=== PATIENT | female | born 1980 | race Caucasian/White ===

== ENCOUNTER 2020-08-14 07:07 | Emergency (ER) | payer MEDICAID, SELFPAY ==
--- NOTE | 2020-08-14 07:06 | ECG_ITS ---
APPROVED REPORT Exam: Resting ECG HR:235 bpm ECG Measurements Heart Rate 235 AXES MI P 223 QRSd 192 QRS 78 QT 188 T 0 QTc 371 Conclusion Atrial flutter Nonspecific intraventricular block Abnormal ECG Electronically signed by : Vicente Bell, 08/15/2020 13:49:36
[2020-08-14 07:08] VITALS: BP 118/81; PULSE 237; RESP 23; TEMP 36.6; O2SAT 99
[2020-08-14 07:15] VITALS: PULSE 235; RESP 20; O2SAT 96
[2020-08-14 07:20] VITALS: BP 120/89; PULSE 96; RESP 15; O2SAT 95
--- NOTE | 2020-08-14 07:22 | ECG_ITS ---
APPROVED REPORT Exam: Resting ECG HR:85 bpm ECG Measurements Heart Rate 85 AXES UT 138 P 73 QRSd 76 QRS 76 QT 366 T 66 QTc 435 Conclusion Sinus rhythm with sinus arrhythmia with occasional and consecutive premature ventricular complexes Abnormal ECG Electronically signed by : Vicente Bell, 08/15/2020 13:49:26
--- NOTE | 2020-08-14 07:24 | XR_ITS ---
PROCEDURE INFORMATION: Exam: XR Chest Exam date and time: 08/14/2020 7:24 AM Age: 40 years old Clinical indication: Patient HX: Heart palpitations started around 2 am. Smoker TECHNIQUE: Imaging protocol: XR of the chest. Views: 2 views. COMPARISON: CR XR CHEST PORTABLE 03/09/2019 12:48 AM FINDINGS: Lungs: Unremarkable. No consolidation. Pleural spaces: Unremarkable. No pleural effusion. No pneumothorax. Heart/Mediastinum: Unremarkable. No cardiomegaly. Bones/joints: Unremarkable. IMPRESSION: No acute findings.
[2020-08-14 07:29] VITALS: BP 118/83; PULSE 98; RESP 14; O2SAT 99
--- NOTE | 2020-08-14 07:33 | HMH.EDARPALP ---
ED Disposition Clinical Impression: Supraventricular tachycardia Disposition: Home, Self-Care Condition on Discharge: Good Instructions: Paroxysmal Supraventricular Tachycardia Additional Instructions: resume meds and see card for follow up Referrals: Provider,MD Enoc [Primary Care Provider] - Oc Villagran MD [Staff Physician] - - Critical Care Critical Care Time: No Attestation: On 08/14/20, the high probability of a clinically significant, sudden or life threatening deterioration of the following system(s) required my full and direct attention, intervention and personal management. The time I documented below is in addition to time spent performing reported procedures but includes the following listed in this critical care notation. Medical Decision Making - Medical Records Medical records reviewed: Yes: I reviewed the patient's medical records. - Baron Inquiry Pt receiving controlled substance: No Vital Signs: 08/14/20 07:08 08/14/20 07:15 08/14/20 07:20 Temperature 97.9 F Temperature Source Oral Pulse Rate 235 H 96 H Pulse Rate [Right] 237 H Respiratory Rate 23 20 15 Blood Pressure 120/89 Blood Pressure [Right Arm] 118/81 Blood Pressure Mean [Right Arm] 93 Blood Pressure Source [Right Arm] Automatic Cuff 02 Sat by Pulse Oximetry 99 96 95 Oxygen Delivery Method Room Air 08/14/20 07:29 08/14/20 08:00 Temperature Temperature Source Pulse Rate 98 H 73 Pulse Rate [Right] Respiratory Rate 14 13 Blood Pressure 118/83 110/83 Blood Pressure [Right Arm] Blood Pressure Mean [Right Arm] Blood Pressure Source [Right Arm] 02 Sat by Pulse Oximetry 99 96 Oxygen Delivery Method - Lab Data Lab results reviewed: Yes: I reviewed the patient's lab results. Lab Results 08/14/20 07:20: WBC 11.8 H, RBC 5.19, Hgb 16.5 H, Hct 49.4 H, MCV 95.1, MCH 31.8 H, MCHC 33.5, RDW 15.0, Plt Count 296, MPV 8.2, Neut % (Auto) 72.4, Lymph % (Auto) 18.4, [place] % (Auto) 4.6, Eos % (Auto) 3.4, Baso % (Auto) 1.1, Neut # (Auto) 8.6 H, Lymph # (Auto) 2.2, [place] # (Auto) 0.6, Eos # (Auto) 0.4, Baso # (Auto) 0.1 08/14/20 07:20: Sodium 145, Potassium 4.1, Chloride 113 H, Carbon Dioxide 20 L, Anion Gap 16.1 H, BUN 7, Creatinine 0.50 L, Estimated Creat Clear 191, Estimated GFR 138, Est GFR ( Amer) 167, Glucose 116 H, Calcium 8.9, Troponin I 0.01 Result diagrams: 08/14/20 07:20 08/14/20 07:20 Orders (Tests/Meds): ED MEDICATIONS Generic Name Dose Route Start Last Admin Trade Name Freq PRN Reason Stop Dose Admin Sodium Chloride 1,000 mls @ 999 mls/hr 08/14/20 07:45 08/14/20 07:34 Sod Chlor 0.9% 1000ml Bag IV 08/14/20 08:45 999 mls/hr .Q1H1M ABDULAZIZ Administration Discontinued Medications Generic Name Dose Route Start Last Admin Trade Name Freq PRN Reason Stop Dose Admin Adenosine 6 mg 08/14/20 07:30 08/14/20 07:34 Adenosine 6mg/2ml Vial IV 08/14/20 07:31 6 mg ONCE ONE Administration ORDERS Category Date Time Status Chest XR 2 view (NOT portable) [XR chest 2V] Stat Exams 08/14/20 07:24 Taken Troponin I Q3H Lab 08/14/20 10:30 Ordered Troponin I Q3H Lab 08/14/20 13:30 Ordered - Radiology Data #1 Image(s): Chest Image Reviewed: Yes I reviewed the patient's radiology image Preliminary Findings: Normal/NAD - ECG Data Tracing #1 Arrhythmias present: PSVT Ischemic changes: non-specific ST-T wave changes Tracing #2 Normal Sinus Rhythm: Yes Ischemic changes: non-specific ST-T wave changes - TONNY Score for Non-Stemi Age of Patient: 30-39 years old Heart Rate: 200 bpm or higher Systolic Blood Pressure: 100-119 mmHg Serum Creatinine: 0.40-0.79 mg/dl CHF [place] Class: I-No CHF Other Risk Factors: None Non-Stemi Risk Score: 101 Medical Decision Narrative: had episode of svt and on meds and has pending appt with card and has meds Arrhythmia/Palpitations HPI - General Chief Complaint: Arrhythmia/Palpitations Sta
[2020-08-14 07:34] LABS: Basophils # 0.1 K/mm3 (0-0.2); Basophils % 1.1 % (0.1-2.0); Eosinophils # 0.4 K/mm3 (0.0-0.4); Eosinophils % 3.4 % (0.1-12.0); Hematocrit 49.4 % (37.0-47.0); Hemoglobin 16.5 g/dL (12.2-16.2); Lymphocytes # 2.2 K/mm3 (0.7-4.5); Lymphocytes % 18.4 % (10-50); Mean Corpuscular HGB Conc 33.5 g/dL (31.8-35.4); Mean Corpuscular Hemoglobin 31.8 pg (27.0-31.2); Mean Corpuscular Volume 95.1 fl (81-99); Mean Platelet Volume 8.2 fl (7.4-10.4); Monocytes # 0.6 K/mm3 (0.1-1.0); Monocytes % 4.6 % (1.7-9.3); Neutrophils # 8.6 K/mm3 (1.8-7.8); Neutrophils % 72.4 % (37.0-80.0); Platelet Count 296 K/mm3 (142-424); Red Blood Count 5.19 M/mm3 (4.20-5.40); White Blood Count 11.8 K/mm3 (4.8-10.8)
[2020-08-14 07:39] LABS: Anion Gap 16.1 mEq/L (5-15); Blood Urea Nitrogen 7 mg/dl (7-17); Calcium 8.9 mg/dl (8.4-10.2); Carbon Dioxide 20 mmol/L (22.0-30.0); Chloride 113 mmol/L (98-107); Creatinine Clearance Estimated 191 mL/min (50-200); Estimated Glomerular Filt Rate 138 ml/min (>60); GFR (African American) 167 ML/MIN (>60); Glucose 116 mg/dl (74-100); Potassium 4.1 mmoL/L (3.5-5.1); Sodium 145 mmol/L (136-145)
[2020-08-14 07:52] LABS: Troponin I 0.01 ng/ml (0.00-0.034)
[2020-08-14 08:00] VITALS: BP 110/83; PULSE 73; RESP 13; O2SAT 96
[2020-08-14 08:41] VITALS: BP 118/86; PULSE 83; RESP 18; TEMP 36.7; O2SAT 97
== END 2020-08-14 08:45 | disposition home or self-care (01) ==
PROVIDERS: Emergency Provider Emergency Medicine
DX: I47.1 Supraventricular tachycardia (principal); F17.210 Nicotine dependence, cigarettes, uncomplicated
CPT/HCPCS: 71046; 80048; 84484; 85025; 93005; 96365; 96375; 99211; 99291

== ENCOUNTER → 2020-11-05 15:08 | Outpatient (CLI) | payer MEDICAID, SELFPAY | PROVIDERS: Visit Provider Internal Medicine Cardiovascular Disease | DX: R00.2 Palpitations (principal); I47.1 Supraventricular tachycardia; I48.92 Unspecified atrial flutter; I49.9 Cardiac arrhythmia, unspecified | CPT/HCPCS: 93225 ==

== ENCOUNTER → 2020-11-10 14:24 | Outpatient (CLI) | payer MEDICAID, SELFPAY ==
--- NOTE | 2020-11-10 14:28 | CA_ITS ---
APPROVED REPORT EXAM: Comprehensive 2D, Doppler, and color-flow Echocardiogram Automobile Locator: Viviane Colón, RT(R) Ht: 5 ft 4 in Wt: 190lbs BSA: 1.91 BP: 152/99 mmHg Indications: Murmur, smoker, palpitations, HTN, family history of HD, hx of atrial fib/flutter per patient. 2D Dimensions LVOT 2.12 cm (M/F) 1.5-2.5 LVEF (Vora's) 59.60 % LV Volume 94.20 mL LA Volume 23.80 mL LA Volume Index 12.50 mL/m2 (M/F) 16-34 M-Mode Dimensions RVDd 3.03 cm (0.9-2.6) LA Diam 3.13 cm (1.9-4.0) LVDd 3.98 cm (3.5-5.7) Ao Diam 2.86 cm (2.0-3.7) LVDs 2.88 cm (3.5-5.7) IVSd 0.80 cm (0.6-1.1) PWd 0.72 cm (0.6-1.1) EF (Teich) 54.20% FS 27.60% EDV (Teich) 69.20 mL ESV (Teich) 31.70 mL LV Diastology E Decel Time 187.00 (160-240 msec) E/A Ratio 1.47 MED E' 11.30 (< 7 cm/sec) E'/MED E' Ratio 8.59 (>14) LAT E' 14.50 (<10 cm/sec) E/LAT E' Ratio 6.70 (>14) Mitral Valve MV E Max Deyvi. 97.00 (40-130 cm/s) MV A Velocity 66.00 (40-130 cm/s) E/A Ratio 1.47 MV Decel. Time 187.00 (160-240 ms) MV PHT 55.00 ms Left Ventricle Left atrium normal size, left ventricle is normal size, there is no concentric left ventricular hypertrophy, visually estimated ejection fraction 55% with no regional wall motion abnormality. Diastolic parameters are within normal range. Right Ventricle Right atrium and right ventricle are normal size and contractility. Aortic Valve Aortic valve is grossly normal, there is no aortic stenosis or aortic insufficiency. Mitral Valve Mitral valve grossly normal, there is trace mitral regurgitation. Tricuspid Valve Tricuspid valve is grossly normal, there is trace tricuspid regurgitation, tricuspid regurgitation jet velocity is inadequate for calculation of the right ventricular systolic pressure. Pulmonic Valve Pulmonic valve is poorly visualized. Great Vessels Aortic root is normal size. Inferior vena cava is normal size with normal inspiratory collapse. Pericardium No significant pericardial effusion noted. Conclusion 1. Normal left ventricular size, visually estimated ejection fraction 55% with no regional wall motion abnormality, diastolic parameters are within normal range. 2. Trace mitral and tricuspid regurgitation 3. No significant pericardial effusion noted. 4. Inferior vena cava is normal size with normal inspiratory collapse. Electronically signed by : Matthew Gilliam MD 11/11/2020 14:38:31
== END ==
PROVIDERS: Visit Provider Internal Medicine Cardiovascular Disease
DX: I49.9 Cardiac arrhythmia, unspecified (principal); I47.1 Supraventricular tachycardia; I48.92 Unspecified atrial flutter
CPT/HCPCS: 93306

== ENCOUNTER 2021-06-12 01:43 | Emergency (ER) | payer MEDICAID, SELFPAY ==
[2021-06-12] VITALS (10 sets, daily range): BP systolic 137–158; BP diastolic 74–103; PULSE 50–80; RESP 11–18; TEMP 36.7–36.8; O2SAT 96–99; BMI 30.9
--- NOTE | 2021-06-12 01:58 | XR_ITS ---
PROCEDURE INFORMATION: Exam: XR Chest Exam date and time: 06/12/2021 2:59 AM Age: 40 years old Clinical indication: Sternal or substernal pain; Additional info: Chest pain TECHNIQUE: Imaging protocol: XR of the chest. Views: 2 views. COMPARISON: CR XR CHEST 2V 08/14/2020 7:27 AM FINDINGS: Lungs: Unremarkable. No consolidation. Pleural spaces: Unremarkable. No pleural effusion. No pneumothorax. Heart/Mediastinum: Unremarkable. No cardiomegaly. Bones/joints: Unremarkable. IMPRESSION: No acute findings.
--- NOTE | 2021-06-12 01:58 | ECG_ITS ---
APPROVED REPORT Exam: Resting ECG HR:63 bpm ECG Measurements Heart Rate 63 AXES WI 128 P 61 QRSd 105 QRS 74 QT 436 T 59 QTc 444 Conclusion SINUS RHYTHM NORMAL ECG UNCONFIRMED REPORT Electronically signed by : Vicente Bell MD 06/12/2021 08:20:06
--- NOTE | 2021-06-12 02:14 | PC.NURSE ---
PT REPORTS THAT PAIN IS INTERMITT AND IS NOT PRESENT AT THIS TIME. FAMILY REMAINS AT BEDSIDE. WCM.
[2021-06-12 02:16] LABS: Basophils # 0.2 K/mm3 (0-0.2); Basophils % 3.3 % (0.1-2.0); Eosinophils # 0.2 K/mm3 (0.0-0.4); Eosinophils % 3.1 % (0.1-12.0); Hematocrit 44.4 % (37.0-47.0); Hemoglobin 14.8 g/dL (12.2-16.2); Lymphocytes # 2.2 K/mm3 (0.7-4.5); Lymphocytes % 30.8 % (10-50); Mean Corpuscular HGB Conc 33.4 g/dL (31.8-35.4); Mean Corpuscular Hemoglobin 32.9 pg (27.0-31.2); Mean Corpuscular Volume 98.7 fl (81-99); Mean Platelet Volume 8.2 fl (7.4-10.4); Monocytes # 0.4 K/mm3 (0.1-1.0); Monocytes % 5.5 % (1.7-9.3); Neutrophils # 4.1 K/mm3 (1.8-7.8); Neutrophils % 57.2 % (37.0-80.0); Platelet Count 275 K/mm3 (142-424); Red Blood Count 4.49 M/mm3 (4.20-5.40); White Blood Count 7.1 K/mm3 (4.8-10.8)
[2021-06-12 02:25] LABS: Alanine Aminotransferase 24 U/L (12-78); Alkaline Phosphatase 86 U/L (38-126); Aspartate Amino Transferase 29 U/L (14-36); Bilirubin,Direct 0.1 mg/dl (0.0-0.4); Bilirubin,Indirect 0.4 mg/dL (0.0-0.9); Bilirubin,Total 0.5 mg/dl (0.2-1.3); Bilirubin,Unconjugated 0.4 mg/dL (0.0-1.1); Blood Urea Nitrogen 5 mg/dl (7-17); Calcium 8.6 mg/dl (8.4-10.2); Carbon Dioxide 23 mmol/L (22.0-30.0); Chloride 107 mmol/L (98-107); Creatinine Clearance Estimated 164 mL/min (50-200); Estimated Glomerular Filt Rate 112 ml/min (>60); GFR (African American) 135 ML/MIN (>60); Glucose 102 mg/dl (74-100); HCG Qualitative, Serum Negative (Negative); Sodium 138 mmol/L (136-145); Total Protein,Serum 7.4 g/dl (6.3-8.2)
--- NOTE | 2021-06-12 02:27 | PC.NURSE ---
MADE AWARE OF ABNORMAL LABS
--- NOTE | 2021-06-12 02:28 | CT_ITS ---
PROCEDURE INFORMATION: Exam: CTA Chest With Contrast Exam date and time: 06/12/2021 3:10 AM Age: 40 years old Clinical indication: Sternal or substernal pain; Patient HX: PT states she fell skating yesterday but tonight she is having chest pain; Additional info: Cp TECHNIQUE: Imaging protocol: Computed tomographic angiography of the chest with contrast. 3D rendering (Not supervised by radiologist): MIP and/or 3D reconstructed images were created by the technologist. Radiation optimization: All CT scans at this facility use at least one of these dose optimization techniques: automated exposure control; mA and/or kV adjustment per patient size (includes targeted exams where dose is matched to clinical indication); or iterative reconstruction. Contrast material: ISOVUE 370; Contrast volume: 70 ml; Contrast route: INTRAVENOUS (IV); COMPARISON: CR XR CHEST 2V 06/12/2021 2:59 AM FINDINGS: Pulmonary arteries: Normal. No pulmonary emboli. Aorta: Unremarkable. No aortic aneurysm. No aortic dissection. Lungs: There is an 8 mm calcified granuloma right lower lobe. Otherwise lungs are clear. No focal consolidation. Pleural spaces: Unremarkable. No pneumothorax. No pleural effusion. Heart: Unremarkable. No cardiomegaly. No pericardial effusion. Lymph nodes: There are calcified right hilar and subcarinal lymph nodes. Bones/joints: Unremarkable. No acute fracture. Soft tissues: Unremarkable. IMPRESSION: 1. No evidence of pulmonary embolism. 2. No acute intrathoracic abnormality. 3. Evidence of old granulomatous disease.
--- NOTE | 2021-06-12 02:31 | HMH.EDCP ---
ED Disposition Clinical Impression: Chest pain Qualifiers: Chest pain type: precordial pain Qualified Code(s): R07.2 - Precordial pain Disposition: Home, Self-Care Condition on Discharge: Good Instructions: DI for Atypical Chest Pain Additional Instructions: see pcp for follow up Referrals: Provider,Referral, [Primary Care Provider] - - Critical Care Critical Care Time: No Attestation: On , the high probability of a clinically significant, sudden or life threatening deterioration of the following system(s) required my full and direct attention, intervention and personal management. The time I documented below is in addition to time spent performing reported procedures but includes the following listed in this critical care notation. Medical Decision Making - Medical Records Medical records reviewed: Yes: I reviewed the patient's medical records. - Baron Inquiry Pt receiving controlled substance: No Vital Signs: 06/12/21 01:44 Temperature 98.1 F Temperature Source Oral Pulse Rate [Left Radial] 80 Respiratory Rate 16 Blood Pressure [Right Arm] 143/103 H Blood Pressure Mean [Right Arm] 116 Blood Pressure Source [Right Arm] Automatic Cuff Blood Pressure Position [Right Arm] Sitting 02 Sat by Pulse Oximetry 99 Oxygen Delivery Method Room Air - Lab Data Lab results reviewed: Yes: I reviewed the patient's lab results. Lab Results 06/12/21 02:05: Serum HCG, Qual Negative 06/12/21 02:05: WBC 7.1, RBC 4.49, Hgb 14.8, Hct 44.4, MCV 98.7, MCH 32.9 H, MCHC 33.4, RDW 15.0, Plt Count 275, MPV 8.2, Neut % (Auto) 57.2, Lymph % (Auto) 30.8, [place] % (Auto) 5.5, Eos % (Auto) 3.1, Baso % (Auto) 3.3 H, Neut # (Auto) 4.1, Lymph # (Auto) 2.2, [place] # (Auto) 0.4, Eos # (Auto) 0.2, Baso # (Auto) 0.2 06/12/21 02:05: Sodium 138, Potassium 3.0 L, Chloride 107, Carbon Dioxide 23, Anion Gap 11.0, BUN 5 L, Creatinine 0.60, Estimated Creat Clear 164, Estimated GFR 112, Est GFR ( Amer) 135, Glucose 102 H, Calcium 8.6, Total Bilirubin 0.5, Direct Bilirubin 0.1, Conjugated Bilirubin 0.0, Indirect Bilirubin 0.4, Unconjugated Bilirubin 0.4, AST 29, ALT 24, Alkaline Phosphatase 86, Troponin I < 0.01, Total Protein 7.4, Albumin 4.0 06/12/21 04:39: Troponin I < 0.01 Result diagrams: 06/12/21 02:05 06/12/21 02:05 Orders (Tests/Meds): ED MEDICATIONS Generic Name Dose Route Start Last Admin Trade Name Freq PRN Reason Stop Dose Admin Sodium Chloride 1,000 mls @ 999 mls/hr 06/12/21 02:00 06/12/21 02:08 Sod Chlor 0.9% 1000ml Bag IV 06/12/21 03:00 999 mls/hr .Q1H1M ABDULAZIZ Administration Discontinued Medications Generic Name Dose Route Start Last Admin Trade Name Freq PRN Reason Stop Dose Admin Aspirin 324 mg 06/12/21 02:00 06/12/21 02:08 Aspirin 81mg Chewable Tablet PO 06/12/21 02:01 324 mg ONCE ONE Administration Nitroglycerin 0.4 mg 06/12/21 02:00 06/12/21 02:08 Nitroglycerin 0.4mg Sl Tablet SL 06/12/21 02:01 1 tab ONCE ONE Administration Potassium Chloride 20 meq 06/12/21 02:34 06/12/21 02:36 Potassium Chloride 20meq Tab PO 06/12/21 02:35 20 meq ONCE ONE Administration ORDERS Category Date Time Status Troponin I Q3H Lab 06/12/21 08:00 Ordered - Radiology Data #1 Image(s): Chest Image Reviewed: Yes I have reviewed radiologist's interpretation Preliminary Findings: Normal/NAD - CT Data CT Scan: Chest Time Received: 05:[address] Reviewed: Yes: I have viewed the radiologist's interpretation Preliminary Findings: Normal/NAD - ECG Data Tracing #1 Normal Sinus Rhythm: Yes Ischemic changes: non-specific ST-T wave changes Medical Decision Narrative: nonspecific chest pain Chest Pain HPI - General Chief Complaint: Chest Pain Stated Complaint: Pain under left breast Time Seen by Provider: 06/12/21 02:31 Mode of Arrival: Ambulatory Source of Information: Patient, Spouse, Medical Record Limitations: No Limitations Description of Symptoms (Re
[2021-06-12 02:45] LABS: Troponin I < 0.01 ng/ml (0.00-0.034)
[2021-06-12 05:17] LABS: Troponin I < 0.01 ng/ml (0.00-0.034)
--- NOTE | 2021-06-12 05:25 | PC.NURSE ---
PT REPORTS NO FURTHER PAIN. PT/FAMILY UPDATED WITH EXPECTED WAIT TIMES. FAMILY REMAINS AT BEDSIDE. WCM.
== END 2021-06-12 05:53 | disposition home or self-care (01) ==
PROVIDERS: Emergency Provider Emergency Medicine
DX: R07.2 Precordial pain (principal); R00.2 Palpitations; R01.1 Cardiac murmur, unspecified; I48.91 Unspecified atrial fibrillation; F17.210 Nicotine dependence, cigarettes, uncomplicated; Z82.49 Family history of ischemic heart disease and other diseases of the circulatory system
CPT/HCPCS: 71046; 71275; 80048; 80076; 84484; 84703; 85025; 93005; 96360; 99285

== ENCOUNTER 2023-10-17 09:53 | Outpatient (CLI) | payer MEDICAID, SELFPAY ==
[2023-10-17 10:40] LABS: Basophils # 0.1 K/mm3 (0-0.2); Basophils % 1.4 % (0.1-2.0); Eosinophils # 0.4 K/mm3 (0.0-0.4); Eosinophils % 6.3 % (0.1-12.0); Hematocrit 46.7 % (37.0-47.0); Hemoglobin 14.8 g/dL (12.2-16.2); Lymphocytes # 1.6 K/mm3 (0.7-4.5); Lymphocytes % 26.4 % (10-50); Mean Corpuscular HGB Conc 31.8 g/dL (31.8-35.4); Mean Corpuscular Hemoglobin 32.2 pg (27.0-31.2); Mean Corpuscular Volume 101.3 fl (81-99); Mean Platelet Volume 8.8 fl (7.4-10.4); Monocytes # 0.3 K/mm3 (0.1-1.0); Monocytes % 4.2 % (1.7-9.3); Neutrophils # 3.8 K/mm3 (1.8-7.8); Neutrophils % 61.8 % (37.0-80.0); Platelet Count 279 K/mm3 (142-424); Red Blood Count 4.61 M/mm3 (4.20-5.40); Red Cell Distribution Width 14.3 % (11.5-17.5); White Blood Count 6.1 K/mm3 (4.8-10.8)
[2023-10-17 11:06] LABS: Alanine Aminotransferase 21 U/L (12-78); Albumin Level 3.9 g/dl (3.5-5.0); Alkaline Phosphatase 58 U/L (38-126); Aspartate Amino Transferase 27 U/L (14-36); Bilirubin,Direct 0.3 mg/dl (0.0-0.4); Bilirubin,Indirect 0.3 mg/dL (0.0-0.9); Bilirubin,Total 0.6 mg/dl (0.2-1.3); Bilirubin,Unconjugated 0.3 mg/dL (0.0-1.1); Blood Urea Nitrogen 9 mg/dl (7-17); Calcium 9.1 mg/dl (8.4-10.2); Carbon Dioxide 25 mmol/L (22.0-30.0); Chloride 108 mmol/L (98-107); Chol/HDL Ratio 3.8 (1-3.5); Cholesterol 228 mg/dl (140-200); Estimated Glomerular Filt Rate 110 ml/min (>60); GFR (African American) 133 ML/MIN (>60); Glucose 101 mg/dl (74-100); HDL Cholesterol 60 mg/dl (40-60); Sodium 137 mmol/L (136-145); Total Protein,Serum 7.5 g/dl (6.3-8.2); Triglycerides 131 mg/dl (30-150); VLDL Cholesterol 26 mg/dL (0-40)
[2023-10-17 11:20] LABS: Free T4 (Free Thyroxine) 0.99 ng/dl (0.78-2.19)
== END 2023-10-17 23:59 | disposition home or self-care (01) ==
LOC: LAB 09:54
PROVIDERS: Visit Provider Nurse Practitioner Family
DX: I48.92 Unspecified atrial flutter (principal); E87.6 Hypokalemia; R07.2 Precordial pain
CPT/HCPCS: 36415; 80048; 80061; 80076; 84439; 84443; 85025

== ENCOUNTER 2024-02-20 12:37 | Emergency (ER) | payer MEDICAID, SELFPAY ==
[2024-02-20] VITALS (7 sets, daily range): BP systolic 111–135; BP diastolic 74–87; PULSE 57–80; RESP 16–19; TEMP 36.9; O2SAT 97–100; BMI 30.9
--- NOTE | 2024-02-20 12:53 | ED_ITS ---
Discharge Plan Disposition Patient Disposition: Home, Self-Care Condition: Good Prescriptions Prescriptions: New methocarbamol 750 mg tablet 750 mg PO Q6H PRN (Reason: muscle spasm) Qty: 20 0RF lidocaine 5 % adhesive patch,medicated 1 patch topical DAILY Qty: 30 0RF Rx Instructions: leave on most painful area for up to 12 hrs No Action bisoprolol fumarate 5 mg tablet See Rx Instructions .ROUTE .COMPLEX Qty: 180 1RF Dose Instruction: TAKE 1 TABLET BY MOUTH TWICE DAILY Rx Instructions: TAKE 1 TABLET BY MOUTH TWICE DAILY Referrals Follow up/Referrals: Oc Rubio DO [Staff Physician] - See instructions Provider,Referral, [Primary Care Provider] - See instructions Activity Restrictions/Add. Instructions Additional Instructions/Restrictions: Check the patient portal for the results of your mini respiratory panel as they are not back yet. As I said we have essentially ruled out any serious or life- threatening condition today however there is possibility that this could be early shingles type pain. Follow-up with your PCP if you have no improvement worsening signs or symptoms or additional symptoms or return to the ER as needed Clinical Impressions Clinical Impression: Acute right flank pain Instructions Patient Instructions: DI for Acute Abdominal Pain Print Language Print Language: French Discharge ED Provider: Bird Pedraza General Adult HPI <LUCIE Montero - Last Filed: 02/20/24 17:26> General Chief complaint: Abdominal Pain Stated complaint: abd/back pain, no accident Time Seen by Provider: 02/20/24 12:53 History of Present Illness HPI narrative: Patient presents for evaluation of right sided flank/thoracic pain. Patient denies any trauma and began having right posterior flank pain that begins in the CVA area on the right and radiates around the right chest wall. She denies any fall trauma shortness of breath fever chills hemoptysis hematochezia melena recent recurrent illness. Patient reports that she did have chickenpox as a child. Related Data Previous Rx's ?Medication ?Instructions ?Recorded bisoprolol fumarate 5 mg tablet See Rx Instructions .Route 10/18/23 .COMPLEX #180 tabs lidocaine 5 % topical patch 1 patch topical DAILY #30 ea 02/20/24 methocarbamol 750 mg tablet 750 mg PO Q6H PRN muscle spasm #20 02/20/24 tabs Allergies Allergy/AdvReac Type Severity Reaction Status Date / Time No Known Allergies Allergy Verified 10/17/23 09:17 [facility] <LUCIE Montero - Last Filed: 02/20/24 17:26> [facility] Disclaimer: The information contained in this section may have been updated after the patient was seen, as this information can be updated by other users. Medical History Palpitations Surgical History Hx of cholecystectomy Social History Smoking Status: Current every day smoker alcohol intake: current alcohol intake frequency: 3 or more drinks per day substance use type: marijuana current occupational status: employed Travel in the last 8 weeks: None Have you lived/traveled outside US in past 30 days?: No Contact w/someone who lives/traveled outside US past 30 days?: No Exposure to someone with infectious disease in past 14 days?: No Do you have a fever (greater than 100.4 F or 38 C)?: No Have you tested positive for COVID-19: No Exposed to someone with COVID-19 in past 14 days?: No Do you have a sore throat?: No Do you have a cough?: No Do you have any weakness?: No Do you have any diarrhea?: No Are you experiencing any unusual bleeding?: No Do you have any muscle aches/pain?: No Do you have any abdominal pain?: Yes Are you experiencing loss of taste or smell?: No Other Medical History Have you received the Flu Vaccine for this season: No Have you received the Pneumonia Vaccine: No <LUCIE Montero - Last Filed: 02/20/24 17:26> ROS Obtained: Yes Systems reviewed as appropriate & no additional complaints except as documented Physical Exam <LUCIE Montero - Last Filed: 02/20/24 17:26> General General appearance: alert and in no apparent distress Respiratory Respiratory exam: Present normal lung sounds bilaterally Cardiovascular Cardiovascular exam: Present regular rate Neurological Exam Neurological exam: Present alert and oriented X3 Medical Decision Making <LUCIE Montero - Last Filed: 02/20/24 17:26> Medical Records Medical records reviewed: Yes I reviewed the patient's medical records. Screening: Per USPSTF and CDC recommendations, given the prevalence of disease in our region, it is our hospital?s policy to screen for HIV and viral Hepatitis for all patients aged 18 and over and those with ongoing risk factors. Baron Inquiry Pt receiving controlled substance: No Vital Signs: 02/20/24 12:38 02/20/24 12:59 02/20/24 13:00 Temperature 98.4 F Temperature Source Oral Pulse Rate 65 63 Pulse Rate [Left Radial] 63 Respiratory Rate 19 Blood Pressure 128/87 135/87 Blood Pressure [Right Arm] 128/87 Blood Pressure Mean [Right Arm] 100 02 Sat by Pulse Oximetry 100 100 100 Oxygen Delivery Method Room Air Room Air Room Air 02/20/24 13:15 02/20/24 14:00 02/20/24 14:30 Temperature Temperature Source Pulse Rate 57 L 80 74 Pulse Rate [Left Radial] Respiratory Rate Blood Pressure 116/77 111/74 Blood Pressure [Right Arm] Blood Pressure Mean [Right Arm] 02 Sat by Pulse Oximetry 99 97 98 Oxygen Delivery Method Room Air Room Air Room Air 02/20/24 14:52 Temperature 98.4 F Temperature Source Pulse Rate 57 L Pulse Rate [Left Radial] Respiratory Rate 16 Blood Pressure 124/78 Blood Pressure [Right Arm] Blood Pressure Mean [Right Arm] 02 Sat by Pulse Oximetry Oxygen Delivery Method Room Air Lab Data Lab results reviewed: Yes I reviewed the patient's lab results. Lab Results 02/20/24 12:57: Urine HCG, Qual Negative 02/20/24 13:00: WBC 5.9, RBC 4.53, Hgb 14.6, Hct 43.0, MCV 94.9, MCH 32.2 H, MCHC 34.0, RDW 13.2, Plt Count 254, MPV 9.9, Neut % (Auto) 61.4, Lymph % (Auto) 29.6, [place] % (Auto) 4.4, Eos % (Auto) 3.7, Baso % (Auto) 0.7, Neut # (Auto) 3.7, Lymph # (Auto) 1.8, [place] # (Auto) 0.3, Eos # (Auto) 0.2, Baso # (Auto) 0.0, PT 9.6, INR 0.86 L, D-Dimer 0.70 H, Sodium 137, Potassium 3.6, Chloride 105, Carbon Dioxide 23, Anion Gap 12.6, BUN 9, Creatinine 0.60, Estimated Creat Clear 159, Estimated GFR 110, Est GFR ( Amer) 133, Glucose 101 H, Calcium 9.3, Total Bilirubin 0.9, AST 29, ALT 21, Alkaline Phosphatase 55, NT-Pro-B Natriuret Pep 261 H, Total Protein 8.1, Albumin 4.4, Globulin 3.7 H, Albumin/Globulin Ratio 1.2, HCV Ab YANNA w/Rflx PCR Qn Negative, HIV Ag/Ab Combo Qual Negative 02/20/24 13:10: Urine Color Yellow, Urine Appearance Clear, Urine pH 6.0, Ur Specific [place] >= 1.030, Urine Protein Negative, Urine Glucose (UA) Negative, Urine Ketones Negative, Urine Blood 3+ A, Urine Nitrate Negative, Urine Bilirubin Negative, Urine Urobilinogen 0.2, Ur Leukocyte Esterase Trace, Urine RBC Occasional, Urine WBC 5-10, Ur Squamous Epith Cells 20-50, Urine Bacteria 1+ 02/20/24 13:20: SARS-CoV-2 (PCR) Not detected, Influenza Type A (PCR) Not detected, Influenza Type B (PCR) Not detected, RSV (PCR) Not detected, Rhinovirus (PCR) Not detected 02/20/24 13:00 02/20/24 13:00 Orders (Tests/Meds): ED MEDICATIONS Discontinued Medications Generic Name Dose Route Start Last Admin Trade Name Jesúsq PRN Reason Stop Dose Admin Acetaminophen 1,000 mg 02/20/24 13:04 02/20/24 13:11 Acetaminophen 500mg Tab PO 02/20/24 13:05 1,000 mg ONCE ONE Administration Iopamidol 75 ml 02/20/24 13:44 02/20/24 13:45 Iopamidol-370 (76%);100ml Bottle IV 02/20/24 13:45 75 ml ONCE ONE Administration Ketorolac Tromethamine 15 mg 02/20/24 13:04 02/20/24 13:11 Ketorolac 30mg/Ml Vial IV 02/20/24 13:05 15 mg ONCE ONE Administration Lidocaine 1 each 02/20/24 13:04 02/20/24 13:11 Lidocaine 5% Transdermal Patch TP 02/20/24 13:05 1 each ONCE ONE Administration Methocarbamol 500 mg 02/20/24 14:25 02/20/24 14:31 Methocarbamol 500mg Tablet PO 02/20/24 14:26 500 mg ONCE ONE Administration Sodium Chloride 10 ml 02/20/24 13:44 02/20/24 13:45 Sodium Chloride 0.9% 10ml Syr (Rad Only) IV 02/20/24 13:45 10 ml ONCE ONE Administration ORDERS Category Date Time Status CT abdomen pelvis w con Stat Cat Scan 02/20/24 13:33 Completed Chest XR 2 view (NOT portable) [XR chest 2V] Stat Exams 02/20/24 13:04 Completed BNP [NT Pro Brain Natriuretic Pep.] Stat Lab 02/20/24 13:00 Completed CBC w/Auto Diff [Complete Blood Count Auto Diff] Stat Lab 02/20/24 13:00 Completed CMP [Comprehensive Metabolic Panel] Stat Lab 02/20/24 13:00 Completed D-Dimer Stat Lab 02/20/24 13:00 Completed HIV Combo Stat Lab 02/20/24 13:00 Completed Hepatitis C Ab Qual. W/ RFX Stat Lab 02/20/24 13:00 Completed INR [Prothrombin Time INR] Stat Lab 02/20/24 13:00 Completed Mini Respiratory Panel Stat Lab 02/20/24 13:20 Completed UA [Urinalysis and Microscopic] Stat Lab 02/20/24 13:10 Completed Urine , HCG Qual. Stat Lab 02/20/24 12:57 Completed Medical Decision Narrative: In summary patient is a 43-year-old female who presents to the emergency department for evaluation of right flank/thoracic pain. Patient is hemodynamically stable upon arrival, afebrile. Physical exam is remarkable for no palpable tenderness over her affected area on the right but does have some CVA tenderness to percussion, breath sounds are clear and equal bilaterally to the bases without adventitious sounds. Patient has no rash or blisters over the affected area. Patient has normal sinus rhythm on bedside monitor normal heart sounds, patient has no abdominal tenderness no rebound or guarding no rigidity. Bowel sounds normal active.. Differential diagnosis includes kidney stone versus ascending urinary tract infection versus pyelonephritis versus pneumonia versus PE versus musculoskeletal strain etc. Initial workup will be conducted with hematologic labs urinalysis D-dimer plain film chest x-ray respiratory swab. Initial interventions include Tylenol Toradol Lidoderm patch and Robaxin. Initial workup reviewed by me shows her hematologic labs are nonactionable including normal white count with no shift, a D-dimer of 0.7 and via years criteria PE is ruled out, my informal interpretation of her plain film chest x- ray shows no acute processes prior to radiology read, urinalysis shows protein negative ketone negative 3+ blood nitrite negative leukocyte Estrace trace with microscopic exam showing occasional red blood cells 5-10 white cells 20-50 epithelial cells indicating contamination 1+ bacteria and as patient has no true urinary symptoms likely skin contamination. Patient reports that she is due to start her period today as well which may explain the hematuria. However given her symptoms I have ordered a CT scan stone protocol of the abdomen. My informal interpretation of her CT scan shows no acute processes no stone prior to radiology read.. Upon repeat evaluation patient reported minimal improvement after initial intervention. Given this we have essentially ruled out any serious or life-threatening condition and there remains diagnostic uncertainty as the particular cause. I have given the patient strict return precautions and prescribed Robaxin and Lidoderm patch and recommended that she follow-up with her PCP within 48 hours for recheck or return to the ER as needed for any worsening signs or symptoms. <Bird Pedraza MD - Last Filed: 02/25/24 15:16> Vital Signs: 02/20/24 12:38 02/20/24 12:59 02/20/24 13:00 Temperature 98.4 F Temperature Source Oral Pulse Rate 65 63 Pulse Rate [Left Radial] 63 Respiratory Rate 19 Blood Pressure 128/87 135/87 Blood Pressure [Right Arm] 128/87 Blood Pressure Mean [Right Arm] 100 02 Sat by Pulse Oximetry 100 100 100 Oxygen Delivery Method Room Air Room Air Room Air 02/20/24 13:15 02/20/24 14:00 02/20/24 14:30 Temperature Temperature Source Pulse Rate 57 L 80 74 Pulse Rate [Left Radial] Respiratory Rate Blood Pressure 116/77 111/74 Blood Pressure [Right Arm] Blood Pressure Mean [Right Arm] 02 Sat by Pulse Oximetry 99 97 98 Oxygen Delivery Method Room Air Room Air Room Air 02/20/24 14:52 Temperature 98.4 F Temperature Source Pulse Rate 57 L Pulse Rate [Left Radial] Respiratory Rate 16 Blood Pressure 124/78 Blood Pressure [Right Arm] Blood Pressure Mean [Right Arm] 02 Sat by Pulse Oximetry Oxygen Delivery Method Room Air Lab Data Lab Results 02/20/24 12:57: Urine HCG, Qual Negative 02/20/24 13:00: WBC 5.9, RBC 4.53, Hgb 14.6, Hct 43.0, MCV 94.9, MCH 32.2 H, MCHC 34.0, RDW 13.2, Plt Count 254, MPV 9.9, Neut % (Auto) 61.4, Lymph % (Auto) 29.6, [place] % (Auto) 4.4, Eos % (Auto) 3.7, Baso % (Auto) 0.7, Neut # (Auto) 3.7, Lymph # (Auto) 1.8, [place] # (Auto) 0.3, Eos # (Auto) 0.2, Baso # (Auto) 0.0, PT 9.6, INR 0.86 L, D-Dimer 0.70 H, Sodium 137, Potassium 3.6, Chloride 105, Carbon Dioxide 23, Anion Gap 12.6, BUN 9, Creatinine 0.60, Estimated Creat Clear 159, Estimated GFR 110, Est GFR ( Amer) 133, Glucose 101 H, Calcium 9.3, Total Bilirubin 0.9, AST 29, ALT 21, Alkaline Phosphatase 55, NT-Pro-B Natriuret Pep 261 H, Total Protein 8.1, Albumin 4.4, Globulin 3.7 H, Albumin/Globulin Ratio 1.2, HCV Ab YANNA w/Rflx PCR Qn Negative, HIV Ag/Ab Combo Qual Negative 02/20/24 13:10: Urine Color Yellow, Urine Appearance Clear, Urine pH 6.0, Ur Specific [place] >= 1.030, Urine Protein Negative, Urine Glucose (UA) Negative, Urine Ketones Negative, Urine Blood 3+ A, Urine Nitrate Negative, Urine Bilirubin Negative, Urine Urobilinogen 0.2, Ur Leukocyte Esterase Trace, Urine RBC Occasional, Urine WBC 5-10, Ur Squamous Epith Cells 20-50, Urine Bacteria 1+ 02/20/24 13:20: SARS-CoV-2 (PCR) Not detected, Influenza Type A (PCR) Not detected, Influenza Type B (PCR) Not detected, RSV (PCR) Not detected, Rhinovirus (PCR) Not detected Orders (Tests/Meds): ED MEDICATIONS Discontinued Medications Generic Name Dose Route Start Last Admin Trade Name Freq PRN Reason Stop Dose Admin Acetaminophen 1,000 mg 02/20/24 13:04 02/20/24 13:11 Acetaminophen 500mg Tab PO 02/20/24 13:05 1,000 mg ONCE ONE Administration Iopamidol 75 ml 02/20/24 13:44 02/20/24 13:45 Iopamidol-370 (76%);100ml Bottle IV 02/20/24 13:45 75 ml ONCE ONE Administration Ketorolac Tromethamine 15 mg 02/20/24 13:04 02/20/24 13:11 Ketorolac 30mg/Ml Vial IV 02/20/24 13:05 15 mg ONCE ONE Administration Lidocaine 1 each 02/20/24 13:04 02/20/24 13:11 Lidocaine 5% Transdermal Patch TP 02/20/24 13:05 1 each ONCE ONE Administration Methocarbamol 500 mg 02/20/24 14:25 02/20/24 14:31 Methocarbamol 500mg Tablet PO 02/20/24 14:26 500 mg ONCE ONE Administration Sodium Chloride 10 ml 02/20/24 13:44 02/20/24 13:45 Sodium Chloride 0.9% 10ml Syr (Rad Only) IV 02/20/24 13:45 10 ml ONCE ONE Administration ORDERS Category Date Time Status CT abdomen pelvis w con Stat Cat Scan 02/20/24 13:33 Completed Chest XR 2 view (NOT portable) [XR chest 2V] Stat Exams 02/20/24 13:04 Completed BNP [NT Pro Brain Natriuretic Pep.] Stat Lab 02/20/24 13:00 Completed CBC w/Auto Diff [Complete Blood Count Auto Diff] Stat Lab 02/20/24 13:00 Completed CMP [Comprehensive Metabolic Panel] Stat Lab 02/20/24 13:00 Completed D-Dimer Stat Lab 02/20/24 13:00 Completed HIV Combo Stat Lab 02/20/24 13:00 Completed Hepatitis C Ab Qual. W/ RFX Stat Lab 02/20/24 13:00 Completed INR [Prothrombin Time INR] Stat Lab 02/20/24 13:00 Completed Mini Respiratory Panel Stat Lab 02/20/24 13:20 Completed UA [Urinalysis and Microscopic] Stat Lab 02/20/24 13:10 Completed Urine , HCG Qual. Stat Lab 02/20/24 12:57 Completed Medical Decision Narrative: In summary patient is a 43-year-old female who presents to the emergency department for evaluation of right flank/thoracic pain. Patient is hemodynamically stable upon arrival, afebrile. Physical exam is remarkable for no palpable tenderness over her affected area on the right but does have some CVA tenderness to percussion, breath sounds are clear and equal bilaterally to the bases without adventitious sounds. Patient has no rash or blisters over the affected area. Patient has normal sinus rhythm on bedside monitor normal heart sounds, patient has no abdominal tenderness no rebound or guarding no rigidity. Bowel sounds normal active.. Differential diagnosis includes kidney stone versus ascending urinary tract infection versus pyelonephritis versus pneumonia versus PE versus musculoskeletal strain etc. Initial workup will be conducted with hematologic labs urinalysis D-dimer plain film chest x-ray respiratory swab. Initial interventions include Tylenol Toradol Lidoderm patch and Robaxin. Initial workup reviewed by me shows her hematologic labs are nonactionable including normal white count with no shift, a D-dimer of 0.7 and via years criteria PE is ruled out, my informal interpretation of her plain film chest x- ray shows no acute processes prior to radiology read, urinalysis shows protein negative ketone negative 3+ blood nitrite negative leukocyte Estrace trace with microscopic exam showing occasional red blood cells 5-10 white cells 20-50 epithelial cells indicating contamination 1+ bacteria and as patient has no true urinary symptoms likely skin contamination. Patient reports that she is due to start her period today as well which may explain the hematuria. However given her symptoms I have ordered a CT scan stone protocol of the abdomen. My informal interpretation of her CT scan shows no acute processes no stone prior to radiology read.. Upon repeat evaluation patient reported minimal improvement after initial intervention. Given this we have essentially ruled out any serious or life-threatening condition and there remains diagnostic uncertainty as the particular cause. I have given the patient strict return precautions and prescribed Robaxin and Lidoderm patch and recommended that she follow-up with her PCP within 48 hours for recheck or return to the ER as needed for any worsening signs or symptoms. I was consulted by the CASSIDY, and we discussed the complexity of the problems being addressed. I approved the treatment and management plan for this patient's care in the Emergency Department, thus performing a substantive portion of the medical decision making. Bird Pedraza MD Critical Care <LUCIE Montero - Last Filed: 02/20/24 17:26> Critical Care Time Critical Care Time: No
--- NOTE | 2024-02-20 13:04 | XR_ITS ---
FINAL REPORT CLINICAL HISTORY: Right flank/posteriorthoracic pain COMPARISON: 08/14/2020 FINDINGS: No acute pulmonary density is evident. There is no evidence of effusion or other pleural disease. The mediastinum has a normal appearance. The cardiac silhouette is unremarkable. IMPRESSION: No active disease Reviewed, Interpreted and Dictated by Tarik Capps MD Transcribed by Yelena Hartman Authenticated and [facility]
[2024-02-20] MEDS: LIDOCAINE 5% TRANSDERMAL PATCH 1 EACH TP (13:11)
[2024-02-20] MEDS: KETOROLAC 30MG/ML VIAL 15 MG IV (13:11)
[2024-02-20] MEDS: ACETAMINOPHEN 500MG TAB 1000 MG PO (13:11)
[2024-02-20 13:17] LABS: Microscopic, Urine URINE MICROSCOPIC (MICROSCOPIC)
[2024-02-20 13:18] LABS: Basophils % 0.7 % (0.1-2.0); Eosinophils # 0.2 K/mm3 (0.0-0.4); Eosinophils % 3.7 % (0.1-12.0); Hemoglobin 14.6 g/dL (12.2-16.2); Lymphocytes # 1.8 K/mm3 (0.7-4.5); Lymphocytes % 29.6 % (10-50); Mean Corpuscular Hemoglobin 32.2 pg (27.0-31.2); Mean Corpuscular Volume 94.9 fl (81-99); Mean Platelet Volume 9.9 fl (7.4-10.4); Monocytes # 0.3 K/mm3 (0.1-1.0); Monocytes % 4.4 % (1.7-9.3); Neutrophils # 3.7 K/mm3 (1.8-7.8); Neutrophils % 61.4 % (37.0-80.0); Platelet Count 254 K/mm3 (142-424); Red Blood Count 4.53 M/mm3 (4.20-5.40); Red Cell Distribution Width 13.2 % (11.5-17.5); White Blood Count 5.9 K/mm3 (4.8-10.8)
[2024-02-20 13:19] LABS: Appearance,Urine CLEAR (Clear); Blood, Urine 3+ (Negative); Color,Urine YELLOW (Yellow); Glucose,Urine (UA) Negative (Negative); Ketones,Urine Negative (Negative); Leukocyte Esterase,Urine TRACE (Negative); Nitrate,Urine Negative (Negative); Protein,Urine Negative (Negative); Specific Gravity, Urine >= 1.030 (1.005-1.030); Urobilinogen,Urine 0.2 EU/dl (0.2)
[2024-02-20 13:21] LABS: Urine Pregnancy, HCG Qual. Negative (Negative)
--- NOTE | 2024-02-20 13:21 | PC.NURSE ---
scarn respiratory swab sent to lab. pt reports no other needs at this time
[2024-02-20 13:22] LABS: Bilirubin,Urine Negative (Negative)
[2024-02-20 13:25] LABS: Coronavirus 19, PCR Not Detected (NotDetected); Human Rhinovirus Not Detected (NotDetected); Influenza A, PCR Not Detected (NotDetected); Influenza B, PCR Not Detected (NotDetected); Respiratory Syncytial Virus Not Detected (NotDetected)
[2024-02-20 13:26] LABS: INR 0.86 (0.9-1.1); Prothrombin Time 9.6 seconds (9.2-12.1)
--- NOTE | 2024-02-20 13:27 | PC.NURSE ---
pt to radiology
[2024-02-20 13:28] LABS: Albumin Level 4.4 g/dl (3.5-5.0); Chloride 105 mmol/L (98-107); Potassium 3.6 mmoL/L (3.5-5.1); Sodium 137 mmol/L (136-145)
[2024-02-20 13:30] LABS: Blood Urea Nitrogen 9 mg/dl (7-17)
[2024-02-20 13:31] LABS: Alanine Aminotransferase 21 U/L (12-78); Albumin/Globulin Ratio 1.2 (1.1-1.8); Alkaline Phosphatase 55 U/L (38-126); Anion Gap 12.6 mEq/L (5-15); Aspartate Amino Transferase 29 U/L (14-36); Bilirubin,Total 0.9 mg/dl (0.2-1.3); Calcium 9.3 mg/dl (8.4-10.2); Carbon Dioxide 23 mmol/L (22.0-30.0); Creatinine Clearance Estimated 159 mL/min (50-200); Estimated Glomerular Filt Rate 110 ml/min (>60); GFR (African American) 133 ML/MIN (>60); Globulin 3.7 g/dL (1.3-3.2); Glucose 101 mg/dl (74-100); Total Protein,Serum 8.1 g/dl (6.3-8.2)
--- NOTE | 2024-02-20 13:31 | PC.NURSE ---
pt returned from radiology
--- NOTE | 2024-02-20 13:33 | CT_ITS ---
FINAL REPORT TECHNIQUE: Oral and IV contrast enhanced exam This study was performed with techniques to keep radiation doses as low as reasonably achievable, (ALARA). Individualized dose reduction techniques using automated exposure control or adjustment of mA and/or kV according to the patient's size were employed. CLINICAL HISTORY: Right flank/thoracic pain COMPARISON: None FINDINGS: Abdomen: Lung bases are clear. The gallbladder has been surgically resected liver has an unremarkable CT appearance. The spleen, pancreas, kidneys and adrenal glands are unremarkable. Kidneys show no mass or obstruction. No bowel obstruction or fluid collection is seen. Pelvis: The appendix is normal in appearance. Pelvic bowel loops are unremarkable. No fluid collection or adenopathy is seen. The uterus and ovaries are unremarkable in appearance. IMPRESSION: No acute abnormality identified in the abdomen or pelvis. Reviewed, Interpreted and Dictated by Tarik Capps MD Transcribed by Yelena Hartman Authenticated and [facility]
[2024-02-20 13:41] LABS: NT Pro Brain Natriuretic Pep. 261 pg/mL (0-125)
[2024-02-20] MEDS: IOPAMIDOL-370 (76%);100ML BOTTLE 75 ML IV (13:45)
[2024-02-20] MEDS: SODIUM CHLORIDE 0.9% 10ML SYR (RAD ONLY) 10 ML IV (13:45)
[2024-02-20 14:16] LABS: Bacteria,Urine 1+ /lpf; RBC,Urine Occasional #/hpf (0-3); Squamous Epithelial Cell,Urine 20-50 #/hpf (0-5)
[2024-02-20 14:31] LABS: HIV Combo NEGATIVE (Negative)
[2024-02-20] MEDS: METHOCARBAMOL 500MG TABLET 500 MG PO (14:31)
[2024-02-20 15:01] LABS: Hepatitis C Ab Qual. W/ RFX NEGATIVE (Negative)
== END 2024-02-20 14:55 | disposition home or self-care (01) ==
PROVIDERS: Physician Assistant; Emergency Provider Emergency Medicine
DX: R10.31 Right lower quadrant pain (principal); M54.6 Pain in thoracic spine; R07.89 Other chest pain
CPT/HCPCS: 71046; 74177; 80053; 81001; 81025; 83880; 85025; 85378; 85610; 86803; 87389; 87631; 96374; 99285; J1885; Q9967

== ENCOUNTER 2024-08-14 19:01 | Emergency (ER) | payer MEDICAID, SELFPAY ==
--- OUTSIDE RECORDS SUMMARY | 2024-08-14 19:29 | XMS_ITS | Encounter Summary ---
Author Organization [facility] Address [address] [place] [address] Care Team Providers Care Fretted Instrument Repairer Name Role Phone Kishore Ford MD Primary Care Provider [phone] Encounter Details Date Type Department Care Team (Late st Contact Info) Description 07/24/2012 Telephone [facility] Physicians - Heart & Vascular, [facility] [address] [facility] [place] [id number] Jame Kurtz MD [address] [facility] [place], [place] [id number] Social History Tobacco Use Types Packs/Day Years Used Date Smoking Tobacco: Every Day Cigarettes Smokeless Tobacco: Never Alcohol Use Standard Drinks/Week Comments No 0 (1 standard drink = 0.6 oz pur e alcohol) Comments No Sex and Gender Information Value Date Recorded Sex Assigned at Not on file Legal Sex Female 7:14 PM EST Gender Identity Not on file Sexual Orientation Not on file documented as of this encounter Plan of Treatment Not on file documented as of this encounter Visit Diagnoses Not on filedocumented in this encounter Care Teams Fretted Instrument Repairer Relationship Specialty Start Date End Date Kishore Ford MD PCP - General Family Medicine 05/31/11 05/10/14 documented as of this encounter
--- OUTSIDE RECORDS SUMMARY | 2024-08-14 19:29 | XMS_ITS | Clinical Summary ---
Author Organization [employer] [facility] Address [address] [phone] Phone Care Team Providers Care Kiln Stoker Name Role Phone Unavailable Unavailable Conditions or Problems No information available. Medications No information available. Medications Administered No information available. Allergies, Adverse Reactions, Alerts No information available. Results No information available. Plan of Care No information available. Procedures No information available. Vital Signs No information available. Immunizations No information available. Advance Directives No information available.
--- OUTSIDE RECORDS SUMMARY | 2024-08-14 19:29 | XMS_ITS ---
Care Plan Created on: August 14, 2024 SHANNON BRADFORD : 1980 Sex: Female Author Organization [facility] Address [address] [place], [place] [address] Phone Care Team Providers Care Handle Maker Name Role Phone Unavailable Primary Care Provider Unavailabl e Active Problems * This document contains information received from the source organization and may not represent a complete record from that organization. Patient Care Coordination No te Formatting of this note fliph t be different from the original. [facility]24 Problem Noted Date Diagnosed Date Alcohol use disorder, severe, in sustained remis yareli 05/10/2023 Rapid palpitations 04/04/2023 Stress 05/11/2022 Opioid dependence on agonist therapy 02/13/2022 Opioid dependence, continuous 01/19/2022 Medication management 01/19/2022 Encounter for monitoring of patient compliance in drug treatment program 01/19/2022 Opioid use disorder, severe, on maintenance ther apy 11/07/2021 Cardiac arrhythmia, unspecified 11/04/2021 Overview (07/30/2024): I49.9 - Cardiovascular - low Added by Interface Dichorionic diamniotic twin in second trimester 11/12/2015 Placental abruption 11/12/2015 Tobacco abuse 06/13/2012 Opioid use disorder, severe, dependence 08/11/19 11 Allergic rhinitis 08/10/2010 Resolved Problems Problem Noted Date Diagnosed Date Resolved Date Alcohol use 03/06/2022 07/30/2024 Alcohol use disorder, severe, dependence 02/20/2022 07/30/2024 Substance-induced anxiety disorder 11/07/2021 07/30/2024 Gallstones 05/19/2020 07/30/2024 Depression 08/10/2010 07/30/2024 Additional Health Concerns Active Problems Noted Date Diagnosed Date Difficulties maintaining sob riety as evidenced by attempts at sobriety with multiple relapses. 03/07/2022 Goals Goal Patient Goal Type Associated Problems Recent Progress Patient-Stated? Author Develop a lifestyle congruent with recovery and maintain long-term sobriety. Care Plan Difficulties maintaining sobriety as evidenced by attempts at sobriety with multiple relapses. Making progress(02/06 10:28 AM EST) Amalia Mary LCSW Interventions Care Plan Interventions Intervention Entry Date Outcome Shannon will taper medication by .5 mg every 6 months and follow all recommendations made by providers. 12/05/2022 Making p rogress Related Goals and Interventions Goal Associated Intervent ions Develop a lifestyle congruen t with recovery and maintain long-term sobriety. Shannon will taper medication by .5 mg ever y 6 months and follow all recommendations made by providers.
--- OUTSIDE RECORDS SUMMARY | 2024-08-14 19:30 | XMS_ITS | Encounter Summary ---
Author Organization [facility] Address [address] [place] [id number] Care Team Providers Care Steam Shovel Engineer Name Role Phone Kishore Ford MD Primary Care Provider [phone] Encounter Details Date Type Department Care Team (Late st Contact Info) Description 02/16/2012 Telephone [facility] - Primary Care, [place] [address] [place] [address] [place] [address] Social History Tobacco Use Types Packs/Day Years [...] on filedocumented in this encounter Care Teams Steam Shovel Engineer Relationship Specialty Start Date End Date Kishore Ford MD PCP - General Family Medicine 05/31/11 05/10/14 documented as of this encounter
--- OUTSIDE RECORDS SUMMARY | 2024-08-14 19:30 | XMS_ITS | Encounter Summary ---
Author Organization [facility] Address [address] [place] [address] Care Team Providers Care Official Greeter Name Role Phone Kishore Ford MD Primary Care Provider [phone] Encounter Details Date Type Department Care Team (Late st Contact Info) Description 06/12/2012 Abstract [facility] - Heart & Vascular, [address] [place] [address] Ambulatory, Pbx Operator Social History Tobacco Use Types Packs/Day Years [...] on file documented as of this encounter Procedures Procedure Name Priority Date/Time Associated Diagnosis Comments ABSTRACTED EKG ([facility]) Routine 04/26/2012 documented in this encounter Results * ABSTRACTED EKG ([facility]) (04/26/2012) ABSTRACT EKG @PCP Sinus Rhythm Rate 63 QRSD 94 us Historical Provider DUMMY Final Result documented in this encounter Visit Diagnoses Not on filedocumented in this encounter Care Teams Official Greeter Relationship Specialty Start Date End Date Kishore Ford MD PCP - General Family Medicine 05/31/11 05/10/14 documented as of this encounter
--- OUTSIDE RECORDS SUMMARY | 2024-08-14 19:30 | XMS_ITS | Clinical Summary ---
Author Organization Healthcare Address [address] [place] [address] Care Team Providers Care Public Health Nutritionist Name Role Phone Unavailable Primary Care Provider Unavailabl e Social History Tobacco Use Types Packs/Day Years Used Date Smoking Tobacco: Never Assessed Comments Unknown Sex and Gender Information Value Date Recorded Sex Assigned at Not on file Legal Sex Female 4:42 PM EDT Gender Identity Not on file Sexual Orientation Not on file Plan of Treatment Health Maintenance Due Date Last Done Comments [facility]-Depression Screening 1980 [facility]-HIV Screening 1980 [facility]-Hepatitis C Screening 1980 [facility]-/Child/Adol SDOH Screenings 1980 [facility]-Varicella Vaccines (1 of 2 - 13+ 2-dose series) 07/07/1995 HPV Vaccines (1 - 3-dose series) 1997 [facility]- SDOH Screenings 2000 [facility]-Adult SDOH Screenings 2000 [facility]-Hepatitis B Vaccines (1 of 3 - 19+ 3-dose series) 2001 [facility]-Pap Smear 07/07/2003 [facility]-Cervical Cancer Screening 2012 [facility]-HPV/Cotest 2012 [facility]-DTaP,Tdap,and Td Vaccines (7 - Td or Tdap) 08/10/2020 08/10/2010, 04/16/1996, 09/12/1988, Additional history exists [id number] Vaccine ( - 2023- season) 2023 [facility]-Influenza Vaccine (#1) 2024 [facility]-Zoster Vaccines (1 of 2) 2032 [facility]-IPV Vaccines Aged Out 09/29/1988, , 1980 No longer eligible based on patient's age to complete this topic [facility]-HIB Vaccines Aged Out No longer e ligible based on patient's age to complete this topic [facility]-Hepatitis A Vaccines Aged Out No longer eligible based on patient's age to complete this topic [facility]-Pneumococcal Vaccine: Pediatrics (0 to 5 Years) and At-Risk Patients (6 to 49 Years) Aged Out No longer eligible based on patient's age to complete this topic [facility]-Rotavirus Vaccines Aged Out No lo nger eligible based on patient's age to complete this topic Insurance [employer] MEDICAID [place] MEDICAID [employer]
--- OUTSIDE RECORDS SUMMARY | 2024-08-14 19:30 | XMS_ITS | Clinical Summary ---
Author Organization [facility] Address [address] [place] [address] Phone Care Team Providers Care Oil Well Directional Surveyor Name Role Phone Unavailable Primary Care Provider Unavailabl e Allergies Active Allergy Reactions Criticality Noted Date Comments Adhesive Other (See Comments) 05/25/2020 blisters Contact Metal Agent Itching 05/25/2020 Blisters itchy. Fake jewelry causes a rash. No problems with gold/silver Medications * This document contains information received from the source organization and may not represent a complete record from that organization. bisoprolol (ZEBETA) 5 mg Oral Tablet TAKE 1 TABLET BY MOUTH TWICE A DAY 180 Tablet 1 4 Active nicotine (NICODERM CQ) 21 mg/24 hr TD Patch 24 hrIndications:Ci garette nicotine dependence without complication Place 1 Patch onto the skin daily. 28 Patch 5 Active buprenorphine-na loxone (SUBOXONE) 2-0.5 mg SL Tablet, SublingualIndica tions:Opioid dependence, continuous (HCC),Opioid dependence on agonist therapy (HCC),Medication management,Opioi d use disorder, severe, on maintenance therapy (HCC) Place 2 tablets under the tongue tomorrow Place 1.5 tablets under tongue then continue alternating dose. 37 Tablet 5 Active Active Problems Patient Care Coordination No te Formatting of this note migh t be different from the original. [facility] Survey-06/18/24 Problem Noted Date Diagnosed Date Alcohol [...] 07/30/2024 Gallstones 05/19/2020 07/30/2024 Depression 08/10/2010 07/30/2024 Immunizations Immunization Administration Dates Next Due Influenza Patient Reported 12/06/2009 Tdap 08/10/2010 Surgical History Surgery Date Site/Laterality Comments SECTION CARDIAC SURGERY heart monitor implant and removal CHOLECYSTECTOMY 05/25/2020 N/A Gamal cholecystectomy; Surgeon: Corby Nagy MD; Location: [facility]; Service: [employer] Medical History Medical History Date Comments Atrial fibrillation (HCC) Substance abuse (HCC) Depression 08/10/2010 Opiate dependence (HCC) 08/10/2010 Allergic rhinitis 08/10/2010 A-fib (HCC) Cardiac dysrhythmia Family History Medical History Relation Name Comments Cancer Father lung cancer, di ed in 2019 at ~66 yo Emphysema Father Heart Disease Father Heart Disease Maternal Grandfather Heart Disease Maternal Grandmother Cancer Mother colon cancer, d iagnosed after age 50 Heart Disease Mother deconditioning Mother in a wheelcha ir, chronic back pain and was beat up at work. Emphysema Paternal Grandmother Anesth Problems Neg Hx Relation Name Status Comments Daughter Alive Father Maternal Grandfather Maternal Grandmother Mother Alive Paternal Grandmother Son Alive Social History Tobacco Use Types Packs/Day Years Used Date Smoking Tobacco: Every Day Cigarettes 1 26.5 Started: 02/05/1998 Passive Smoke Exposure: Current Smokeless Tobacco: Never Tobacco Cessation:Ready to Q uit: Not Asked; Counseling Given: Not Answered Comments:wants to get off the other stuff first Alcohol Use Standard Drinks/Week Comments Yes 0 (1 standard drink = 0.6 oz pur e alcohol) occ Sexually Active Control Partners Comments Yes Male Comments No Sex and Gender Information Value Date Recorded Sex Assigned at Not on file Legal Sex Female 4:47 AM EDT Gender Identity Not on file Sexual Orientation Not on file Occupation Industry Job Start Date Job End Date unemployed Not on file Not on file Not on file Obstetrics History Last Filed Vital Signs Vital Sign Reading Time Taken Comments Blood Pressure 116/70 07/30/2024 11:16 AM EDT Pulse 70 07/30/2024 11:16 AM EDT Temperature 35.9 C (96.7 F) 07/30/2024 11:16 AM EDT Respiratory Rate 18 07/30/2024 11:16 AM EDT Oxygen Saturation 98% 07/30/2024 11:16 AM EDT Inhaled Oxygen Concentration - - Weight 80.3 kg (177 lb) 07/30/2024 11:16 AM EDT Height 162.6 cm (5' 4 ) 01/09/2024 10:42 AM EST Body Mass Index 30.38 01/09/2024 10:42 AM EST Plan of Treatment Health Maintenance Due Date Last Done Comments Annual Wellness Exam 1985 Hepatitis B Vaccine (1 of 3 - 19+ 3-dose series) 2001 Pneumococcal Vaccine 0-49 (1 of 2 - PCV) 2001 Cervical Cancer Screening 07/07/2003 Pap Smear 07/07/2003 HPV/Pap Cotest 2012 DTaP/TDaP/Td (7 - Td or Tdap) 08/10/2020 08/10/2010, 04/16/1996, 09/12/1988, Additional history exists Breast Cancer Screening 2022 COVID-19 Vaccine ( season) 2023 Influenza Vaccine (#1) 2024 12/06/2009 Meningococcal B Vaccine Aged Out No l onger eligible based on patient's age to complete this topic Goals Goal Patient Goal Type Associated Problems Recent Progress Patient-Stated? Author Develop a lifestyle congruent with recovery and maintain long-term sobriety. Care Plan Difficulties maintaining sobriety as evidenced by attempts at sobriety with multiple relapses. Making progress(02/06 10:28 AM EST) Amalia Mary LCSW Procedures Procedure Name Priority Date/Time Associated Diagnosis Comments DRUG CONFIRMATION, CANNABINOIDS - URINE Routine 07/30/2024 12:34 PM EDT Opioid dependence, continuous (HCC) Opioid dependence on agonist therapy (HCC) Medication management Opioid use disorder, severe, on maintenance therapy (HCC) Positive urine drug screen DRUG CONFIRMATION, BUPRENORPHINE AND METAB - URINE Routine 07/30/2024 12:34 PM EDT Opioid dependence, continuous (HCC) Opioid dependence on agonist therapy (HCC) Medication management Opioid use disorder, severe, on maintenance therapy (HCC) Positive urine drug screen ETHYL GLUCURONIDE SCREEN W/ REFLEX, URINE-REF LAB Routine 07/30/2024 12:34 PM EDT Opioid dependence, continuous (HCC) Opioid dependence on agonist therapy (HCC) Medication management Opioid use disorder, severe, on maintenance therapy (HCC) Positive urine drug screen DRUGS OF ABUSE WITH REFLEX TO CONFIRMATION, URINE Routine 07/30/2024 12:34 PM EDT Opioid dependence, continuous (HCC) Opioid dependence on agonist therapy (HCC) Medication management Opioid use disorder, severe, on maintenance therapy (HCC) Positive urine drug screen DRUG CONFIRMATION, CANNABINOIDS - URINE Routine 07/09/2024 11:27 AM EDT Opioid dependence, continuous (HCC) Opioid dependence on agonist therapy (HCC) Medication management DRUG CONFIRMATION, BUPRENORPHINE AND METAB - URINE Routine 07/09/2024 11:27 AM EDT Opioid dependence, continuous (HCC) Opioid dependence on agonist therapy (HCC) Medication management DRUGS OF ABUSE WITH REFLEX TO CONFIRMATION, URINE Routine 07/09/2024 11:27 AM EDT Opioid dependence, continuous (HCC) Opioid dependence on agonist therapy (HCC) Medication management ETHYL GLUCURONIDE/SULFATE CONFRM, URN-REF LAB Routine 06/18/2024 12:32 PM EDT Opioid dependence, continuous (HCC) Opioid dependence on agonist therapy (HCC) Medication management DRUG CONFIRMATION, BUPRENORPHINE AND METAB - URINE Routine 06/18/2024 12:32 PM EDT Opioid dependence, continuous (HCC) Opioid dependence on agonist therapy (HCC) Medication management ETHYL GLUCURONIDE SCREEN W/ REFLEX, URINE-REF LAB Routine 06/18/2024 12:32 PM EDT Opioid dependence, continuous (HCC) Opioid dependence on agonist therapy (HCC) Medication management DRUGS OF ABUSE WITH REFLEX TO CONFIRMATION, URINE Routine 06/18/2024 12:32 PM EDT Opioid dependence, continuous (HCC) Opioid dependence on agonist therapy (HCC) Medication management DRUG CONFIRMATION, CANNABINOIDS - URINE Routine 06/04/2024 12:49 PM EDT Opioid dependence, continuous (HCC) Opioid dependence on agonist therapy (HCC) Medication management Encounter for monitoring of patient compliance in drug treatment program DRUG CONFIRMATION, BUPRENORPHINE AND METAB - URINE Routine 06/04/2024 12:49 PM EDT Opioid dependence, continuous (HCC) Opioid dependence on agonist therapy (HCC) Medication management Encounter for monitoring of patient compliance in drug treatment program ETHYL GLUCURONIDE SCREEN W/ REFLEX, URINE-REF LAB Routine 06/04/2024 12:49 PM EDT Opioid dependence, continuous (HCC) Opioid dependence on agonist therapy (HCC) Medication management Encounter for monitoring of patient compliance in drug treatment program DRUGS OF ABUSE WITH REFLEX TO CONFIRMATION, URINE Routine 06/04/2024 12:49 PM EDT Opioid dependence, continuous (HCC) Opioid dependence on agonist therapy (HCC) Medication management Encounter for monitoring of patient compliance in drug treatment program DRUG CONFIRMATION, CANNABINOIDS - URINE Routine 05/21/2024 12:01 PM EDT Opioid dependence, continuous (HCC) Opioid dependence on agonist therapy (HCC) Medication management DRUG CONFIRMATION, BUPRENORPHINE AND METAB - URINE Routine 05/21/2024 12:01 PM EDT Opioid dependence, continuous (HCC) Opioid dependence on agonist therapy (HCC) Medication management ETHYL GLUCURONIDE SCREEN W/ REFLEX, URINE-REF LAB Routine 05/21/2024 12:01 PM EDT Opioid dependence, continuous (HCC) Opioid dependence on agonist therapy (HCC) Medication management DRUGS OF ABUSE WITH REFLEX TO CONFIRMATION, URINE Routine 05/21/2024 12:01 PM EDT Opioid dependence, continuous (HCC) Opioid dependence on agonist therapy (HCC) Medication management from Last 3 Months Results * (ABNORMAL) DRUG CONFIRMATION, CANNABINOIDS - URINE (07/30/2024 12:34 PM EDT) Only the most recent of4 resultswithin the time period is included. THC 20(H) Cutoff 10 ng/mL ng/mL 07/31/2024 7:50 PM EDT [email or web address] [employer] THC Glucuronide <10 Cutoff 10 ng/mL ng/mL 07/31/2024 7:50 PM EDT [email or web address] [employer] Urine STRUCTURE OF URINARY TRACT PROPER / Unknown 07/30/2024 12:34 PM EDT 07/30/2024 12:34 PM EDT us Rose Mary Patel MD URINE ORDERABLES Final Result [email or web address] [employer] [address] [place] [address] , [address] [place] [id number] * (ABNORMAL) DRUG CONFIRMATION, BUPRENORPHINE AND METAB - URINE (07/30/2024 12:34 PM EDT) Only the most recent of5 resultswithin the time period is included. Buprenorphine 5(H) Cutoff 5 ng/mL ng/mL 07/31/2024 7:50 PM EDT [email or web address] [employer] Buprenorphine Glucuronide 257(H) Cutoff 10 ng/mL ng/mL 07/31/2024 7:50 PM EDT [email or web address] [employer] Norbuprenorphine 61(H) Cutoff 5 ng/mL ng/mL 07/31/2024 7:50 PM EDT [facility] Norbuprenorphine Glucuronide >400(H) Cutoff 10 ng/mL ng/mL 07/31/2024 7:50 PM EDT [facility] Naloxone <25 Cutoff 25 ng/mL ng/mL 07/31/2024 7:50 PM EDT [facility] Urine STRUCTURE OF URINARY TRACT PROPER / Unknown 07/30/2024 12:34 PM EDT 07/30/2024 12:34 PM EDT Rose Mary Patel MD URINE ORDERABLES Final Result [facility] [address] [facility] [place] [address] * ETHYL GLUCURONIDE SCREEN W/ REFLEX, URINE-REF LAB (07/30/2024 12:34 PM EDT) Only the most recent of4 resultswithin the time period is included. U Ethyl Glucuronide Screen w/R Negative ng/mL 08/01/2024 1:28 AM EDT [facility] Comment: Presumptively Negative by immunoassay. Testing by mass spectrometry is available on request. INTERPRETIVE INFORMATION: Ethyl Glucuronide Screen, Urine Methodology: Immunoassay Positive Cutoff: 500 ng/mL Performed By: [facility] [address] [place] [address] Primary Care Physician: Porfirio Munoz MD, PhD CLIA Number: [id number] Urine STRUCTURE OF URINARY TRACT PROPER / Unknown 07/30/2024 12:34 PM EDT 07/30/2024 12:34 PM EDT Rose Mary Patel MD URINE ORDERABLES Final Result [facility] [address] [place], [place] [id number] * (ABNORMAL) DRUGS OF ABUSE WITH REFLEX TO CONFIRMATION, URINE (07/30/2024 12:34 PM EDT) Only the most recent of5 resultswithin the time period is included. 6 AM (Heroin) Absent Cutoff 10 ng/mL 07/30/2024 9:53 PM EDT [facility] Amphetamines Absent Cutoff 500 ng/mL 07/30/2024 9:53 PM EDT [facility] Barbiturates Absent Cutoff 200 ng/mL 07/30/2024 9:53 PM EDT [facility] Benzodiazepines Absent Cutoff 200 ng/mL 07/30/2024 9:53 PM EDT [facility] Buprenorphine Presumptive Pos(A) Cutoff 5 ng/mL 07/30/2024 9:53 PM EDT [facility] Cannabinoid Metabolite Presumptive Pos(A) Cutoff 50 ng/mL 07/30/2024 9:53 PM EDT [facility] Cocaine Metabolite Absent Cutoff 150 ng/mL 07/30/2024 9:53 PM EDT [facility] Fentanyl Absent Cutoff 5 ng/mL 07/30/2024 9:53 PM EDT [facility] Methadone and Metabolite Absent Cutoff 300 ng/mL 07/30/2024 9:53 PM EDT [facility] Opiate Absent Cutoff 300 ng/mL 07/30/2024 9:53 PM EDT [facility] Oxycodone Lvl Absent Cutoff 100 ng/mL 07/30/2024 9:53 PM EDT [facility] Urine Creatinine 184.0 mg/dL 07/31/19 9:53 PM EDT [facility] Comment: Greater than 20: Consistent with valid sample Greater than 2 but less than 20: Possible dilution Less than 2: Questionable valid sample Urine STRUCTURE OF URINARY TRACT PROPER / Unknown 07/30/2024 12:34 PM EDT 07/30/2024 12:34 PM EDT Narrative [facility] - 07/30/2024 9:53 PM EDT These drug classes have been qualitatively screened by immunoassay and are for medical purposes only. Results should not be used for non-medical purposes. Results reported as presumptive positive will be sent for confirmation. Due to possible factors, such as, dilute/adulterated urine, concentration of drug/metabolite being below the cut-off, or antibody specificity of test reagent, a negative result does not rule out drug use. These results are only valid for urine specimens. Any contamination with vaginal pool/amniotic fluid could cause erroneous results. Rose Mary Patel MD URINE ORDERABLES Final Result [email or web address] [address] [facility], [place] [address] * ETHYL GLUCURONIDE/SULFATE CONFRM, URN-REF LAB (06/18/2024 12:32 PM EDT) U Ethyl Glucuronide Confirmati 895 ng/mL 06/26/2024 8:33 PM EDT [facility] U Ethyl Sulfate Confirmation 348 ng/mL 06/26/2024 8:33 PM EDT [facility] Comment: INTERPRETIVE INFORMATION: Ethyl Glucuronide and Ethyl Sulfate, Urine Quantitative Ethyl glucuronide (EtG) and Ethyl Sulfate (EtS) are direct metabolites of ethanol. EtG and EtS can be detected up to 80 hours in urine after ethanol ingestion and the presence of both metabolites can be used as markers for recent alcohol use. The presence of EtG, alone in urine, is not a unique marker of ethanol ingestion. False positive EtG results can occur from microbial formation or from fermentation and false negative EtG results can occur from bacterial degradation. The analytical measurement range is 100-10,000 ng/mL. This test was developed and its performance characteristics determined by [facility]. It has not been cleared or approved by the [place] Food and Drug Administration. This test was performed in a CLIA certified laboratory and is intended for clinical purposes. Performed By: [facility] [address] [place] [address] Primary Care Physician: Porfirio Munoz MD, PhD CLIA Number: [id number] Urine STRUCTURE OF URINARY TRACT PROPER / Unknown 06/18/2024 12:32 PM EDT 06/18/2024 12:32 PM EDT Rose Mary Patel MD URINE ORDERABLES Final Result Performing Organization Address City/[facility]/ZIP Co de Phone Number [facility] [address] [place], [place] [phone] from Last 3 Months Additional Health Concerns Active Problems Noted Date Diagnosed Date Difficulties maintaining sob riety as evidenced by attempts at sobriety with multiple relapses. 03/07/2022 Insurance BY [facility] BY [facility] [id number] BY [facility]
--- OUTSIDE RECORDS SUMMARY | 2024-08-14 19:30 | XMS_ITS | Clinical Summary ---
Author Organization [facility] Address [address] [place] [id number] Care Team Providers Care Belting And Webbing Inspector Name Role Phone Unavailable Primary Care Provider Unavailabl e Allergies No known active allergies Medications citalopram (CELEXA) 40 mg PO tablet Take 1 Tab by mouth daily. 30 Tab 5 4 Active ibuprofen (MOTRIN) 800 mg tablet TAKE 1 TABLET THREE TIMES A DAY 90 Tab 1 4 Active NORTREL 7/7/7, 28, 0.5/0.75/1 mg- 35 mcg Tablet TAKE 1 TABLET EVERY DAY 28 Tab 0 4 Active polyethylene glycol (GLYCOLAX;MIRALA X) 17 gram/dose powder TAKE 17 G BY MOUTH DAILY. MIX IN BEVERAGE OF CHOICE 527 g 3 5 Active Buprenorphine-Na loxone (SUBOXONE) 8-2 mg sublingual tabIndications:O pioid type dependence, unspecified Place 1.5 Tabs under tongue 2 times daily. 12 Tab 0 5 Active ibuprofen (MOTRIN) 800 mg tablet TAKE 1 TABLET THREE TIMES A DAY 90 Tab 1 5 Active Active Problems Problem Noted Date Diagnosed Date Paroxysmal atrial fibrillation ([facility]) 013 Tobacco abuse 06/13/2012 Palpitations 06/13/2012 Opioid dependence 06/13/2012 Family History Medical History Relation Name Comments Heart Surgery Father Heart Surgery Mother stents placed. High Blood Pressure Mother Relation Name Status Comments Brother 1 Alive Brother 2 Alive Brother 3 Alive Daughter Alive Father Alive Mother Alive Son Alive Social History Tobacco Use Types Packs/Day Years Used Date Smoking Tobacco: Every Day Cigarettes Smokeless Tobacco: Never Tobacco Cessation:Ready to Q uit: No; Counseling Given: Yes Alcohol Use Standard Drinks/Week Comments No 0 (1 standard drink = 0.6 oz pur e alcohol) Comments No Sex and Gender Information Value Date Recorded Sex Assigned at Not on file Legal Sex Female 7:14 PM EST Gender Identity Not on file Sexual Orientation Not on file Last Filed Vital Signs Vital Sign Reading Time Taken Comments Blood Pressure 130/70 04/17/2014 4:17 PM EDT Pulse 76 04/17/2014 4:17 PM EDT Temperature 36.9 C (98.4 F) 04/17/2014 4:17 PM EDT Respiratory Rate - - Oxygen Saturation 98% 04/17/2014 4:17 PM EDT Inhaled Oxygen Concentration - - Weight 76.2 kg (168 lb) 04/17/2014 4:17 PM EDT Height 162.6 cm (5' 4 ) 04/17/2014 4:17 PM EDT Body Mass Index 28.84 04/17/2014 4:17 PM EDT Plan of Treatment Health Maintenance Due Date Last Done Comments Lipid Screening 2000 Tetanus Vaccination (Every 1 0 Years) 2000 Cervical Cancer Screening 07/07/2003 COVID-19 Vaccine (2023-2 5 season) 2023 Depression Screening 02/06/2024 Influenza Vaccination (#1) 2024 HPV Vaccine Aged Out No longer eligi ble based on patient's age to complete this topic Insurance [place]ID [place] MEDICA[place] MEDICAID [place] STATES MEDICAID OTHER STATES
[2024-08-14 19:33] VITALS: BP 167/98; PULSE 81; RESP 16; TEMP 36.7; O2SAT 98; BMI 30.5
--- NOTE | 2024-08-14 19:37 | PC.NURSE ---
Pt awake alert and oriented Skin pink warm and dry Resp full and easy Speech clear and appropriate Urine collected and sent to lab
--- NOTE | 2024-08-14 19:38 | HMH.EDGENADL ---
Discharge Plan Disposition Patient Disposition: Home, Self-Care Prescriptions Prescriptions: New methocarbamol 750 mg tablet 750 mg PO Q8H PRN (Reason: muscle spasm) Qty: 20 0RF lidocaine 5 % adhesive patch,medicated 1 patch topical DAILY Qty: 15 0RF Rx Instructions: leave on most painful area for up to 12 hrs No Action bisoprolol fumarate 5 mg tablet See Rx Instructions .ROUTE .COMPLEX Qty: 180 3RF Dose Instruction: TAKE 1 TABLET BY MOUTH TWICE A DAY Rx Instructions: TAKE 1 TABLET BY MOUTH TWICE A DAY methocarbamol 750 mg tablet 750 mg PO Q6H PRN (Reason: muscle spasm) Qty: 20 0RF lidocaine 5 % adhesive patch,medicated 1 patch topical DAILY Qty: 30 0RF Rx Instructions: leave on most painful area for up to 12 hrs Referrals Follow up/Referrals: Provider,Referral, MD [Primary Care Provider, Medical] - See instructions Activity Restrictions/Add. Instructions Additional Instructions/Restrictions: You can take Tylenol, ibuprofen, Robaxin and lidocaine patches to help with your symptoms. If they do not resolve, I encourage you to follow-up with your primary care physician. If you develop any new or worsening symptoms, or if you become concerned for your health for any reason, return to the emergency department for evaluation Clinical Impressions Clinical Impression: Acute right flank pain Print Language Print Language: Turkmen Discharge ED Provider: Cristian Sanchez Adult HPI General Chief complaint: PAIN Stated complaint: Lower back pain and abdomin Time Seen by Provider: 08/14/24 19:28 Mode of Arrival: Ambulatory Source of Information: Patient Description of Symptoms (Recalled from ER Triage Doc. by RN): right flank pain since yesterday History of Present Illness HPI narrative: Glenna Rasmussen is a 44y female who presents to the ED for complaints of right flank pain that began yesterday. Patient states that she woke up with pain in her right flank that is now radiating more anteriorly. She denies any dysuria or hematuria. She denies any history of kidney stones. She denies any trauma to the area or rashes. She states that a similar thing happened 6 months ago she was worked up for but they did not find any cause other than a possible muscle strain. She denies any fevers, chest pain or shortness of breath. Related Data Previous Rx's ?Medication ?Instructions ?Recorded lidocaine 5 % topical patch 1 patch topical DAILY #30 ea 02/20/24 methocarbamol 750 mg tablet 750 mg PO Q6H PRN muscle spasm #20 02/20/24 tabs bisoprolol fumarate 5 mg tablet See Rx Instructions .Route 04/16/24 .COMPLEX #180 tabs lidocaine 5 % topical patch 1 patch topical DAILY #15 ea 08/14/24 methocarbamol 750 mg tablet 750 mg PO Q8H PRN muscle spasm #20 08/14/24 tabs Allergies Allergy/AdvReac Type Severity Reaction Status Date / Time No Known Allergies Allergy Verified 10/17/23 09:17 [facility] Disclaimer: The information contained in this section may have been updated after the patient was seen, as this information can be updated by other users. Medical History Palpitations Surgical History Hx of cholecystectomy Social History Smoking Status: Current every day smoker alcohol intake: current alcohol intake frequency: 3 or more drinks per day substance use type: marijuana current occupational status: employed Travel in the last 8 weeks?: None Have you lived/traveled outside [place] in past 30 days?: No Contact w/someone who lives/traveled outside US past 30 days?: No Exposure to someone with infectious disease in past 14 days?: No Do you have a fever (greater than 100.4 F or 38 C)?: No Have you tested positive for COVID-19?: No Exposed to someone with COVID-19 in past 14 days?: No Do you have a sore throat?: No Do you have a cough?: No Do you have any weakness?: No Do you have any diarrhea?: No Are you experiencing any unusual bleeding?: No Do you have any muscle aches/pain?: No Do you have any abdominal pain?: Yes Are you experiencing loss of taste or smell?: No Other Medical History Have you received the Flu Vaccine for this season: No Have you received the Pneumonia Vaccine: No ROS Obtained: Yes Systems reviewed as appropriate & no additional complaints except as documented Physical Exam General General appearance: alert and in no apparent distress Head Head exam: atraumatic Eye Eye exam: Present normal appearance ENT ENT exam: Present normal external ear exam Neck Neck exam: Present full ROM Chest Chest inspection: Present symmetric chest wall rise Respiratory Respiratory exam: Present normal lung sounds bilaterally; Absent respiratory distress Cardiovascular Cardiovascular exam: Present regular rate and normal rhythm Abdominal Exam Abdominal exam: Present soft; Absent tenderness or guarding Extremities Exam Extremities exam: Present normal inspection Back Exam Back exam: Present normal inspection; Absent CVA tenderness (R) or CVA tenderness (L) Neurological Exam Neurological exam: Present alert and oriented X3 Psychiatric Psychiatric exam: Present normal affect Skin Skin exam: Present warm and dry Medical Decision Making Medical Records Screening: Per USPSTF and CDC recommendations, given the prevalence of disease in our region, it is our hospital?s policy to screen for HIV and viral Hepatitis for all patients aged 18 and over and those with ongoing risk factors. Baron Inquiry Pt receiving controlled substance: No Vital Signs: 08/14/24 19:33 08/14/24 22:36 Temperature 98.1 F 98.3 F Temperature Source Oral Oral Pulse Rate 84 Pulse Rate [Right Brachial] 81 Respiratory Rate 16 20 Blood Pressure 159/81 H Blood Pressure [Right Arm] 167/98 H Blood Pressure Mean [Right Arm] 121 Blood Pressure Source Automatic Cuff Blood Pressure Source [Right Arm] Automatic Cuff Blood Pressure Position Sitting Blood Pressure Position [Right Arm] Sitting 02 Sat by Pulse Oximetry 98 Oxygen Delivery Method Room Air Room Air Lab Data Lab Results 08/14/24 19:30: Urine Color Yellow, Urine Appearance Clear, Urine pH 5.5, Ur Specific [place] >= 1.030, Urine Protein Negative, Urine Glucose (UA) Negative, Urine Ketones Negative, Urine Blood 2+ A, Urine Nitrate Negative, Urine Bilirubin Negative, Urine Urobilinogen 0.2, Ur Leukocyte Esterase Negative, Urine WBC 3-5, Ur Squamous Epith Cells 5-10, Calcium Oxalate Crystal 3+, Urine Bacteria Trace 08/14/24 19:40: WBC 7.1, RBC 4.56, Hgb 14.9, Hct 42.7, MCV 93.6, MCH 32.7 H, MCHC 34.9, RDW 13.1, Plt Count 251, MPV 10.1, Neut % (Auto) 60.5, Lymph % (Auto) 30.2, [place] % (Auto) 5.4, Eos % (Auto) 3.1, Baso % (Auto) 0.7, Neut # (Auto) 4.3, Lymph # (Auto) 2.1, [place] # (Auto) 0.4, Eos # (Auto) 0.2, Baso # (Auto) 0.1, PT 10.6, INR 0.95, Sodium 137, Potassium 3.4 L, Chloride 102, Carbon Dioxide 22, Anion Gap 16.4 H, BUN 12, Creatinine 0.80, Estimated Creat Clear 117, Estimated GFR 79, Est GFR ( Amer) 95, Glucose 92, Calcium 9.6, Total Bilirubin 0.6, AST 30, ALT 16, Alkaline Phosphatase 77, Total Protein 9.1 H, Albumin 4.7, Globulin 4.4 H, Albumin/Globulin Ratio 1.1, Lipase 32, Serum HCG, Qual Negative 08/14/24 19:40 08/14/24 19:40 Orders (Tests/Meds): ED MEDICATIONS Discontinued Medications Generic Name Dose Route Start Last Admin Trade Name Freq PRN Reason Stop Dose Admin Acetaminophen 1,000 mg 08/14/24 21:18 08/14/24 21:22 Acetaminophen 500mg Tab PO 08/14/24 21:19 1,000 mg ONCE ONE Administration Ketorolac Tromethamine 15 mg 08/14/24 19:35 08/14/24 19:42 Ketorolac 30mg/Ml Vial IV 08/14/24 19:36 15 mg ONCE ONE Administration Lidocaine 1 each 08/14/24 21:18 08/14/24 21:21 Lidocaine 5% Transdermal Patch TD 08/14/24 21:19 1 each ONCE ONE Administration Methocarbamol 1,000 mg 08/14/24 21:18 08/14/24 21:22 Methocarbamol 500mg Tablet PO 08/14/24 21:19 1,000 mg ONCE ONE Administration ORDERS Category Date Time Status CT abdomen pelvis wo con Stat Cat Scan 08/14/24 20:00 Completed CBC w/Auto Diff [Complete Blood Count Auto Diff] Stat Lab 08/14/24 19:40 Completed CMP [Comprehensive Metabolic Panel] Stat Lab 08/14/24 19:40 Completed Lipase Stat Lab 08/14/24 19:40 Completed PT INR [Prothrombin Time INR] Stat Lab 08/14/24 19:40 Completed Serum [HCG Qualitative, Serum] Stat Lab 08/14/24 19:40 Completed UA [Urinalysis and Microscopic] Stat Lab 08/14/24 19:30 Completed Medical Decision Narrative: Glenna Rasmussen is a 44y female who presents to the ED for complaints of right flank pain that began yesterday. Patient states that she woke up with pain in her right flank that is now radiating more anteriorly. She denies any dysuria or hematuria. She denies any history of kidney stones. She denies any trauma to the area or rashes. She states that a similar thing happened 6 months ago she was worked up for but they did not find any cause other than a possible muscle strain. She denies any fevers, chest pain or shortness of breath. Patient notes that she smokes tobacco, drinks on the weekends, and occasionally uses marijuana. On arrival, patient is hypertensive with blood pressure 167/98, heart rate within normal limits, breathing company on room air with oxygen saturation 98% SpO2. Afebrile. Physical exam, stated above, revealed overall well-appearing female in no distress. Abdomen is soft, nontender nondistended. She has no CVA tenderness bilaterally. No rashes to the concerned area. Cardiopulmonary exam is unremarkable. Differential diagnosis includes, but is not limited to: UTI/pyelonephritis, ureterolithiasis, muscle strain, pleurisy, ectopic , among others. The most morbid conditions were considered and workup was based on these. Workup in the emergency department included: CT abdomen pelvis without contrast, CBC, CMP, serum test, lipase, PT/INR, urinalysis. Patient was treated with 15 mg IV Toradol, 1 g of oral Tylenol, Robaxin 1000 mg orally, and lidocaine patch. CT imaging interpreted by me personally. No ureterolithiasis or other acute findings. Incidental 3.9 cm left ovarian cyst. Urine without evidence of infection. No leukocytosis. Mildly elevated anion gap of 16.4. INR normal at 0.95. CBC unremarkable nonactionable. Liver enzymes within normal limits. On reassessment, patient remained in stable condition. Her workup today is unremarkable for any acute pathology. Is felt the patient likely has a muscle strain given the distribution of her symptoms. Recommending she take Tylenol, ibuprofen at home for symptomatic relief. Also prescribing Robaxin as well as lidocaine patches. Return precautions were given. All questions were answered. She demonstrated understanding and was in agreement this plan. She was then discharged from the emergency department in stable condition. Critical Care Critical Care Time Critical Care Time: No
[2024-08-14] MEDS: KETOROLAC 30MG/ML VIAL 15 MG IV (19:42)
[2024-08-14 19:52] LABS: Hematocrit 42.7 % (37.0-47.0); Hemoglobin 14.9 g/dL (12.2-16.2); Immature Granulocytes % 0.1 %; Mean Corpuscular HGB Conc 34.9 g/dL (31.8-35.4); Mean Corpuscular Hemoglobin 32.7 pg (27.0-31.2); Mean Corpuscular Volume 93.6 fl (81-99); Nucleated Red Blood Cells % 0 %; Platelet Count 251 K/mm3 (142-424); Red Blood Count 4.56 M/mm3 (4.20-5.40); Red Cell Distribution Width-SD 44.7 fL; White Blood Count 7.1 K/mm3 (4.8-10.8)
--- NOTE | 2024-08-14 20:00 | CT_ITS ---
PROCEDURE INFORMATION: Exam: CT Abdomen And Pelvis Without Contrast Exam date and time: 08/14/2024 8:54 PM Age: 44 years old Clinical indication: Abdominal pain; Flank; Right; Additional info: Possible kidney stone, right TECHNIQUE: Imaging protocol: Computed tomography of the abdomen and pelvis without contrast. Radiation optimization: All CT scans at this facility use at least one of these dose optimization techniques: automated exposure control; mA and/or kV adjustment per patient size (includes targeted exams where dose is matched to clinical indication); or iterative reconstruction. COMPARISON: CT ABDOMEN PELVIS W CON 02/20/2024 1:41 PM FINDINGS: Liver: Normal. No mass. Gallbladder and biliary ducts: Cholecystectomy Pancreas: Normal. No ductal dilation. Spleen: Normal. No splenomegaly. Adrenal glands: Normal. No mass. Kidneys and ureters: Normal. No hydronephrosis. Stomach and bowel: Unremarkable. No obstruction. No mucosal thickening. Appendix: No evidence of appendicitis. Intraperitoneal space: Unremarkable. No free air. No significant fluid collection. Vasculature: Unremarkable. No abdominal aortic aneurysm. Lymph nodes: Unremarkable. No enlarged lymph nodes. Urinary bladder: Unremarkable as visualized. Reproductive: 3.9 cm left ovarian cyst. Bones/joints: Unremarkable. No acute fracture. Soft tissues: Unremarkable. IMPRESSION: No acute findings. 3.9 cm left ovarian cyst.
[2024-08-14 20:06] LABS: Albumin Level 4.7 g/dl (3.5-5.0); Chloride 102 mmol/L (98-107); Potassium 3.4 mmoL/L (3.5-5.1); Sodium 137 mmol/L (136-145)
[2024-08-14 20:08] LABS: INR 0.95 (0.9-1.1); Prothrombin Time 10.6 seconds (10.1-12.5)
[2024-08-14 20:09] LABS: Alanine Aminotransferase 16 U/L (12-78); Albumin/Globulin Ratio 1.1 (1.1-1.8); Alkaline Phosphatase 77 U/L (38-126); Anion Gap 16.4 mEq/L (5-15); Aspartate Amino Transferase 30 U/L (14-36); Bilirubin,Total 0.6 mg/dl (0.2-1.3); Blood Urea Nitrogen 12 mg/dl (7-17); Calcium 9.6 mg/dl (8.4-10.2); Carbon Dioxide 22 mmol/L (22.0-30.0); Creatinine Clearance Estimated 117 mL/min (50-200); Creatinine,Serum 0.80 mg/dl (0.52-1.04); Estimated Glomerular Filt Rate 79 ml/min (>60); GFR (African American) 95 ML/MIN (>60); Globulin 4.4 g/dL (1.3-3.2); Glucose 92 mg/dl (74-100); Lipase 32 U/L (23-300); Total Protein,Serum 9.1 g/dl (6.3-8.2)
[2024-08-14 20:18] LABS: Microscopic, Urine URINE MICROSCOPIC (MICROSCOPIC)
[2024-08-14 20:43] LABS: Color,Urine YELLOW (Yellow); Glucose,Urine (UA) Negative (Negative); Ketones,Urine Negative (Negative); Leukocyte Esterase,Urine Negative (Negative); PH,Urine 5.5 (5.0-8.5); Protein,Urine Negative (Negative); Specific Gravity, Urine >= 1.030 (1.005-1.030); Urobilinogen,Urine 0.2 EU/dl (0.2)
[2024-08-14 20:46] LABS: HCG Qualitative, Serum Negative (Negative)
[2024-08-14 20:47] LABS: Bilirubin,Urine Negative (Negative)
--- NOTE | 2024-08-14 20:53 | PC.NURSE ---
Pt ambulatory to CT scan
[2024-08-14] MEDS: LIDOCAINE 5% TRANSDERMAL PATCH 1 EACH TD (21:21)
[2024-08-14] MEDS: ACETAMINOPHEN 500MG TAB 1000 MG PO (21:22)
[2024-08-14] MEDS: METHOCARBAMOL 500MG TABLET 1000 MG PO (21:22)
[2024-08-14 21:28] LABS: Bacteria,Urine Trace /lpf; Calcium Oxalate Crystals,Urine 3+ /lpf
[2024-08-14 22:36] VITALS: BP 159/81; PULSE 84; RESP 20; TEMP 36.8; O2SAT 99
== END 2024-08-14 22:38 | disposition home or self-care (01) ==
PROVIDERS: Emergency Provider Student in an Organized Health Care Education/Training Program
DX: M54.50 Low back pain, unspecified (principal); I48.92 Unspecified atrial flutter; E87.6 Hypokalemia; F17.210 Nicotine dependence, cigarettes, uncomplicated
CPT/HCPCS: 74176; 80053; 81001; 83690; 84703; 85025; 85610; 96374; 99284; J1885